=== PATIENT | male | born 1980 | race Caucasian/White ===

== ENCOUNTER 2025-07-05 23:00 | Emergency (ER) | payer OTHER ==
[2025-07-05] MEDS ORDERED: Fluorescein Opthalmic Strip ONE (23:24)
[2025-07-05] MEDS ORDERED: Proparacaine 0.5% Opth 15 ML BOT ONE (23:25)
[2025-07-05] MEDS ORDERED: Ondansetron PF 4 MG/2 ML Vial ONE (23:57)
[2025-07-06 00:18] LABS: #Basophils 0.06 10x3/uL (0.0-0.2); #Eosinophils 0.24 10x3/uL (0.0-0.7); #Monocytes 0.76 10x3/uL (0.11-0.59); #Neutrophils 7.74 10x3/uL (1.40-6.50); %Basophils 0.5 % (0.0-1.0); %Eosinophils 2.0 % (0.0-10.0); %Lymphocytes 26.9 % (21.0-51.0); %Monocytes 6.3 % (0.0-10.0); %Neutrophils 63.8 % (42.0-75.0); Hematocrit 42.4 % (42.0-52.0); Hemoglobin 14.2 g/dL (14.0-18.0); Mean Corpuscular Hemoglobin 29.6 pg (27.0-31.0); Mean Corpuscular Volume 88.5 fL (78.0-98.0); Platelet Count 260 10x3/uL (130-400); Red Blood Cell (RBC) Count 4.79 mill/uL (4.70-6.10); White Blood Cell (WBC) Count 12.12 10x3/uL (4.8-10.8)
[2025-07-06 00:51] LABS: ALT (SGPT) 56 U/L (Less than 45); AST (SGOT) 38 U/L (11-34); Albumin 3.5 g/dL (3.1-4.5); Alkaline Phosphatase 150 U/L (40-110); Anion Gap 14 mmol/L (10-20); BUN (Urea Nitrogen) 23 mg/dL (8.9-20.6); Bilirubin, Total 0.5 mg/dL (0.3-1.2); Calc. Creatinine Clearance 0 mL/min (70-130); Calcium 8.7 mg/dL (7.8-10.44); Carbon Dioxide 23 mmol/L (22-29); Chloride 107 mmol/L (98-107); Globulin 4.1 g/dL (2.4-3.5); Glucose 130 mg/dL (70-105); Potassium 3.5 mmol/L (3.5-5.1); Sodium 140 mmol/L (136-145)
[2025-07-06] MEDS ORDERED: Fluorescein Opthalmic Strip ONE (01:51)
== END 2025-07-06 03:11 | disposition short-term general hospital (02) ==
LOC: ERS 23:00
DX: H16.001 Unspecified corneal ulcer, right eye (principal); H54.7 Unspecified visual loss; F17.200 Nicotine dependence, unspecified, uncomplicated
CPT/HCPCS: 70450; 80053; 85025; 96374; 96375; J2270; J2405